=== PATIENT | female | born 1975 | race Two or more races ===

== ENCOUNTER 2025-02-19 13:41 | Emergency (ER) | payer OTHER ==
[~2025-02-19] VITALS: Ht 160 cm; Wt 64.4 kg
[2025-02-19] MEDS ORDERED: GUAIFEN/DEXTROMETHORPHAN/PE 10 ML BLIST.PACK PO ONE (14:28)
[2025-02-19] MEDS ORDERED: GUAIFENESIN/DEXTROMETHORPHAN 100MG/10ML BLIST.PACK PO ONE (14:30)
[2025-02-19 15:32] LABS: COVID-19 AG POSITIVE (NEGATIVE)
[2025-02-19] MEDS ORDERED: TUSNEL LIQUID178 ML PO (15:36)
[2025-02-19] MEDS ORDERED: PAXLOVID 300-11 EAC1 PO (15:36)
[2025-02-19 15:42] VITALS: BP 130/81; O2SAT 98
[2025-02-19] MEDS ORDERED: SALINE NOSE SPR45 ML (15:54)
== END 2025-02-19 15:43 | disposition home or self-care (01) ==
LOC: ER 13:41
PROVIDERS: General Practice
DX: U07.1 COVID-19 (principal)